=== PATIENT | male | born 1940 | race Caucasian/White ===

== ENCOUNTER 2023-12-31 09:35 | Inpatient (IN) | payer MEDICARE, BC ==
[~2023-12-31] VITALS: Ht 185.4 cm; Wt 115.2 kg
[2023-12-31 10:16] LABS: BASOPHILS ABSOLUTE AUTO 0.06 K/mm3 (0.00-0.23); BASOPHILS PERCENT AUTO 1 % (0-2); EOSINOPHILS ABSOLUTE AUTO 0.05 K/mm3 (0.00-0.68); EOSINOPHILS PERCENT AUTO 1 % (0-6); Hematocrit 39.5 % (37.0-53.0); Hemoglobin 13.3 g/dL (13.5-17.5); IMMATURE GRAN ABSOLUTE AUTO 0.03 K/mm3 (0.00-0.10); IMMATURE GRAN PERCENT AUTO 0 % (0-1); LYMPHOCYTES ABSOLUTE AUTO 0.86 K/mm3 (0.84-5.20); LYMPHOCYTES PERCENT AUTO 13 % (21-46); MONOCYTES ABSOLUTE AUTO 0.37 K/mm3 (0.16-1.47); MONOCYTES PERCENT AUTO 5 % (4-13); Mean Corpuscular HGB Conc 33.7 g/dL (31.5-36.5); Mean Corpuscular Volume 92 fL (80-100); Mean Platelet Volume 9.1 fL (9.1-12.4); NEUTROPHILS ABSOLUTE AUTO 5.52 K/mm3 (1.96-9.15); NEUTROPHILS PERCENT AUTO 80 % (41-73); Platelet Count 161 K/mm3 (150-400); RDW Coefficient Variation 13.3 % (11.7-14.2); RDW Standard Deviation 45.6 fL (35.1-46.3); Red Blood Cell Count 4.29 M/mm3 (4.30-5.90); White Blood Cell Count 6.89 K/mm3 (4.00-11.30)
[2023-12-31 10:40] LABS: C-REACTIVE PROTEIN, EXT RANGE 0.602 mg/dL (0.000-0.300); Magnesium, Blood 2.2 mg/dL (1.6-2.4)
[2023-12-31 10:49] LABS: Albumin, Blood 3.5 g/dL (3.4-5.0); Albumin/Globulin Ratio 0.8 (0.8-1.8); Bilirubin, Total 0.7 mg/dL (0.1-1.0); Bun/Creatinine Ratio 20.6 (12.0-20.0); Calcium, Blood 8.7 mg/dL (8.5-10.1); Creatinine, Blood 0.87 mg/dL (0.60-1.20); Globulin, Blood 4.2 g/dL (2.2-4.0); Total Protein, Blood 7.7 g/dL (6.4-8.2)
[2023-12-31 14:00] VITALS: BP 171/82
[2023-12-31] MEDS ORDERED: LISINOPRIL-HCT1 EAC1 PO (14:01)
[2023-12-31] MEDS ORDERED: K-TAB ER20 ME1 PO (14:01)
[2023-12-31] MEDS ORDERED: FUROSEMIDE20 MG PO (14:02)
[2023-12-31] MEDS ORDERED: Prochlorperazine Edisylate 10 mg Vial IV PRN (14:30)
[2023-12-31] MEDS ORDERED: FLU VACC TS2024-25(6MOS UP)/PF 45 MCG/0.5 ML SYRINGE IM SCH (14:30)
[2023-12-31] MEDS ORDERED: Ondansetron 4 MG TAB PO PRN (14:30)
[2023-12-31] MEDS ORDERED: TraZODone HCl 50 MG Tab PO PRN (14:30)
[2023-12-31] MEDS ORDERED: Magnesium Hydroxide Conc 10 ML UDC PO PRN (14:35)
[2023-12-31] MEDS ORDERED: Bisacodyl 10 MG Supp PR PRN (14:35)
[2023-12-31] MEDS ORDERED: NS 1,000 ML IV SCH (15:00)
[2023-12-31] MEDS ORDERED: Famotidine 20 MG Tab PO SCH (21:00)
[2023-12-31] MEDS ORDERED: Lactobacil 2-S.Thermo-Bifido 1 1 Cap PO SCH (21:00)
== END 2023-12-31 20:04 | disposition left against medical advice (07) | DRG 125 ==
LOC: ER 09:35 → PCU 14:27
PROVIDERS: Physician Assistant; ADMIT Hospitalist
DX: H50 Other strabismus (principal); I50.22 Chronic systolic (congestive) heart failure; I11.0 Hypertensive heart disease with heart failure; H55.09 Other forms of nystagmus; Z95.2 Presence of prosthetic heart valve; Z88.8 Allergy status to other drugs, medicaments and biological substances
CPT/HCPCS: 70450; 80053; 83735; 85025; 86140; 93005; 93010; 93306; 99285-25